=== PATIENT | male | born 1975 | race Two or more races ===

== ENCOUNTER → 2017-03-04 | Outpatient (CLI) | payer BC ==
[~2017-03-04] MED LIST: CARBATROL200 MG PO; DILANTIN KAPSE100 MG PO; DILANTIN PO; FAMOTIDINE PO; FAMOTIDINE20 MG PO; GENFIBROZIL PO; HYDROCODONE-APA1 T41 PO; KEPPRA500 M1 PO; KEPPRA500 MG PO; LOPID600 MG PO; LORTAB 5/500 TA1 TA1 PO; LORTAB 7.5-5001 TAB PO; OYSTER SHELL CA1 TA3 PO; TEGRETOL PO; ZANTAC150 M1 PO; ZOLOFT PO
--- NOTE | ~2017-03-04 | MR17 ---
[facility] A Service of [facility] RADIOLOGY TEXT RESULTS PATIENT: MERI HUMPHREY LOCATION: [facility] : 75 UNIT #: [id number] AGE: [address]: Harish Lawson II, MD SEX: M ORDER DR: [id number] [facility] [place], [place] [address] [id number] O MR#: [id number] Acc #: [id number] NAME: MERI HUMPHREY : 1975 SEX: M STUDY DATE/TIME: 03/04/2017 11:27 UNIT: [facility] ROOM: STUDY DESCRIPTION: MR Brain WWo Contrast Attending Physician: Harish Lawson II., M.D. Referring Physician: Harish Lawson II., M.D. Ordering Physician: Harish Lawson II., M.D. Primary Care Physician: [facility], [facility] MRI CENTER REPORT This report is preliminary unless electronic signature is present. EXAM MRI of the brain with and without contrast dated 03/04/2017 COMPARISON None. HISTORY Epilepsy for 10 years. Patient is on medication. Last episode was 2 weeks ago. TECHNIQUE Multisequence, multiplanar imaging of the brain was obtained with and without contrast. 18 mL of MultiHance was administered intravenously. FINDINGS No acute stroke, space-occupying intracranial mass, mass effect, midline shift, or hydrocephalus. Age-appropriate parenchymal volume is seen. Thin coronal T2 sequence of the hippocampal formations demonstrate normal size, shape, asymmetry. Postcontrast sequences do not demonstrate enhancing lesions. No congenital malformations or cortical dysgenesis including heterotopias. Nasal septum is slightly deviated to the left. Imaged orbits of the ocular structures and mastoids are unremarkable. IMPRESSION No demonstrable intracranial abnormality. Dictated by... Todd Lyon M.D. THIS IS AN ELECTRONICALLY VERIFIED REPORT [facility] A Service of [facility] RADIOLOGY TEXT RESULTS PATIENT: MERI HUMPHREY LOCATION: [facility] : 75 UNIT #: [id number] AGE: [address]: Harish Lawson II, MD SEX: M ORDER DR: Todd Lyon M.D. at 03/04/2017 9:31 PM CPR/aa TD: 03/04/2017 15:35 JOB #: [id number] MRI CENTER REPORT Page 1 of 1 COPY
--- NOTE | ~2017-03-04 | EE ---
Unit #: [id number] #: [id number] Patient: MERI HUMPHREY [id number] [address] [address] [id number] O MR#: [id number] NAME: MERI HUMPHREY : 1975 SEX: M STUDY DATE/TIME: 03/04/2017 UNIT: [facility] ROOM: STUDY DESCRIPTION: EEG Attending Physician: Harish Lawson II., M.D. Referring Physician: Harish Lawson II., M.D. Primary Care Physician: [facility], NEURODIAGNOSTICS REPORT EXAM EEG. TECH Amanda. REASON FOR STUDY Seizures. TECHNICAL INFORMATION This is a routine EEG performed using the standard international 10-20 system of electrode placement. Photic stimulation was performed. Hyperventilation was also performed. REPORT Throughout the entire study, the best background rhythm seen is approximately 9 Hz. This rhythm is seen in both posterior head regions symmetrically and does attenuate to eye opening and closure. Photic stimulation was performed, which did not elicit any epileptiform abnormalities; however, a good photic driving response was seen. Hyperventilation was also performed, which failed to reproduce any abnormal buildup. Throughout the entire study there were no electrographic seizures recorded, nor were there any independent epileptiform abnormalities seen. No sleep was recorded. INTERPRETATION This is a normal awake EEG. A normal EEG does not rule out the possibility of a seizure disorder. Clinical correlation is advised. Dictated by... Harish Lawson II., M.D. GWS/alana TD: 03/14/2017 12:10 JOB #: [id number] Unit #: [id number] #: [id number] Patient: MERI HUMPHREY NEURODIAGNOSTICS REPORT Page 1 of 1 X NEURODIAGNOSTICS REPORT
== END | disposition home or self-care (01) ==
LOC: CMRI 08:06
DX: R41.3 Other amnesia (principal)
CPT/HCPCS: 70553; 95816; A9577